=== PATIENT | female | born 1980 | race Caucasian/White ===

== ENCOUNTER → 2021-04-11 | Outpatient (CLI) | payer BC ==
[~2021-04-11] MED LIST: IBUP80TA PO; LANOOIN21 EX; LEVO125T3 PO; MAPA500T17 PO; PRENTAB9 PO
== END ==
LOC: M WHC 15:06
PROVIDERS: ATTEND Specialist
DX: Z12.4 Encounter for screening for malignant neoplasm of cervix (principal)
CPT/HCPCS: 87624; G0123

== ENCOUNTER → 2021-05-23 | Outpatient (CLI) | payer BC ==
--- NOTE | 2021-05-23 08:36 | REPMRS ---
Patient History The patient states she had a clinical breast exam in March 2021. No known family history of cancer. Took hormonal contraceptives for 12 years. Covid vaccines 11/2020 left arm. 12/2020 left arm. Pt denied . Patient states no breast complaints today. Patient has signed MRS History Sheet. Digital Woman Screen Mammo: May 23, 2021 - Exam #: [id number] Bilateral CC and MLO view(s) were taken. Technologist: RT Araceli FINDINGS: The breast tissue is heterogeneously dense. This may lower the sensitivity of mammography. Screening. Digital screening (2D) mammography was performed bilaterally. Additionally, breast tomosynthesis (3D) mammography was perfomed bilaterally in the CC and MLO projections. Today's examination is the initial screening examination. By history, the patient has no complaints of a palpable breast abnormality or other significant breast complaints. The Volpara volumetric breast density category is C, the breasts are heterogenously dense which may obscure small masses. The breasts are symmetric in size and shape. There are no masses. There is no internal architectural distortion. There are no suspicious microcalcific clusters. Skin thickening or nipple retraction is not present. IMPRESSION: BI-RADS Category 2- Benign Findings. There is no evidence of malignant alteration of the breasts. Followup examination recommended in one year. This mammogram was read with the assistance of [employer],an FDA approved computer aided detection system for mammography. The lifetime Tyrer-Cuzick score is 12.6% Negative x-ray reports should not delay surgical consultation if a dominant or clinically suspicious mass is present. Due to the density of the breasts, MRI/whole breast screening ultrasound is warranted. Not all breast cancers can be identified by mammography. Therefore, we recommend that you continue to perform regular breast self-examination and physical examination and then promptly contact your physician of any concerns or changes. Adenosis and dense breasts may obscure an underlying neoplasm. Assessment: BI-RADS/ACR category 2 mammogram. Benign Findings. Recommendation Routine screening mammogram of both breasts in 1 year. Electronically Signed By: Sander Mujica MD 05/23/21 0835
== END ==
LOC: M WHC 06:57
PROVIDERS: ATTEND Specialist
DX: Z12.31 Encounter for screening mammogram for malignant neoplasm of breast (principal)

== ENCOUNTER → 2022-02-11 | Outpatient (REF) | payer BC | LOC: M SFHCDERM 16:15 | PROVIDERS: ATTEND Physician Assistant | DX: D22.9 Melanocytic nevi, unspecified (principal) ==

== ENCOUNTER → 2022-05-26 | Outpatient (CLI) | payer BC | LOC: M WHC 06:52 | PROVIDERS: ATTEND Specialist | DX: R92.8 Other abnormal and inconclusive findings on diagnostic imaging of breast (principal); Z12.31 Encounter for screening mammogram for malignant neoplasm of breast ==

== ENCOUNTER → 2022-06-03 | Outpatient (CLI) | payer BC | LOC: M WHC 13:58 | PROVIDERS: ATTEND Specialist | DX: R92.2 Inconclusive mammogram (principal) | CPT/HCPCS: 76642; 77065; G0279 ==

== ENCOUNTER → 2022-12-07 | Outpatient (CLI) | payer BC | LOC: M WHC 13:48 | PROVIDERS: ATTEND Specialist | DX: N63.20 Unspecified lump in the left breast, unspecified quadrant (principal) | CPT/HCPCS: 77065; G0279 ==

== ENCOUNTER → 2023-06-22 | Outpatient (CLI) | payer BC | LOC: M WHC 06:57 | PROVIDERS: ATTEND Specialist | DX: Z12.31 Encounter for screening mammogram for malignant neoplasm of breast (principal) ==

== ENCOUNTER → 2023-08-23 | Outpatient (REF) | payer BC | LOC: M SFHCWAGY 08:20 | PROVIDERS: ATTEND Specialist | DX: Z12.4 Encounter for screening for malignant neoplasm of cervix (principal); R87.610 Atypical squamous cells of undetermined significance on cytologic smear of cervix (ASC-US) | CPT/HCPCS: 87624; G0123 ==

== ENCOUNTER → 2023-09-08 | Outpatient (CLI) | payer BC | LOC: M WHC 07:13 | PROVIDERS: ATTEND Specialist | DX: N92.6 Irregular menstruation, unspecified (principal) ==

== ENCOUNTER 2023-10-18 11:49 | Day surgery (SDC) | payer BC ==
[~2023-10-18] VITALS: Ht 162.6 cm; Wt 62.1 kg
[~2023-10-18 11:49] MED LIST changes: +D 1010004 PO; +LEVO112T2 PO
[2023-10-18 12:16] LABS: HEMATOCRIT 41.3 % (36.0-47.0); HEMOGLOBIN 13.4 g/dl (12.0-15.5); MEAN CORPUSCULAR HEMOGLOBIN 29.3 pg (27.0-33.0); MEAN CORPUSCULAR HGB CONC 32.4 g/dl (32.0-36.5); MEAN CORPUSCULAR VOLUME 90.2 fl (80.0-96.0); PLATELET COUNT, AUTOMATED 343 10^3/uL (150-450); RED BLOOD COUNT 4.58 10^6/uL (4.00-5.40)
[2023-10-18] MEDS ORDERED: LIDOCAINE 2% 100MG/5ML SDV (FOR ANES.) As Ordered ONE (12:17)
[2023-10-18] MEDS ORDERED: KETOROLAC 60MG 2ML VIAL As Ordered ONE (12:17)
[2023-10-18] MEDS ORDERED: propofoL 200 MG/20 ML VIAL As Ordered ONE (12:17)
[2023-10-18] MEDS ORDERED: ONDANSETRON 4MG 2ML VIAL As Ordered ONE (12:17)
[2023-10-18] MEDS ORDERED: MIDAZOLAM INJ 2MG/2ML VIAL As Ordered ONE (12:21)
[2023-10-18] MEDS ORDERED: fentaNYL 100 MCG/2 ML INJECTION As Ordered ONE (12:21)
[2023-10-18] MEDS ORDERED: LR 1,000 ML IV SCH ×2 (12:30→16:30)
[2023-10-18] MEDS ORDERED: ACETAMINOPHEN 1000MG 100ML IV BAG As Ordered ONE (16:00)
[2023-10-18] MEDS ORDERED: fentaNYL 100 MCG/2 ML INJECTION IV PRN (16:30)
[2023-10-18] MEDS ORDERED: ONDANSETRON 4MG 2ML VIAL IV PRN (16:30)
[2023-10-18 17:15] VITALS: BP 146/90; TEMP 97.2; O2SAT 99
[2023-10-18] MEDS ORDERED: ETOMIDATE INJ 20MG/10ML VIAL As Ordered ONE (17:17)
== END 2023-10-18 17:35 | disposition home or self-care (01) ==
LOC: M SDC 11:49
PROVIDERS: ATTEND Specialist
DX: N84.0 Polyp of corpus uteri (principal); N92.0 Excessive and frequent menstruation with regular cycle; N85.8 Other specified noninflammatory disorders of uterus; E03.9 Hypothyroidism, unspecified; Z79.890 Hormone replacement therapy
CPT/HCPCS: 36415; 58563; 81025; 85027; 88305; J0131; J1100; J1885; J2250; J2405; J3010

== ENCOUNTER → 2024-07-18 | Outpatient (CLI) | payer BC | LOC: M WHC 06:47 | PROVIDERS: ATTEND Specialist | DX: Z12.31 Encounter for screening mammogram for malignant neoplasm of breast (principal) ==

== ENCOUNTER → 2025-01-09 | Outpatient (REF) | payer BC ==
[2025-01-11 15:02] LABS: HPV APTIMA Not Detected (Not Detected)
== END ==
LOC: M SFHCWAGY 18:06
PROVIDERS: ATTEND Specialist
DX: Z12.4 Encounter for screening for malignant neoplasm of cervix (principal); R87.610 Atypical squamous cells of undetermined significance on cytologic smear of cervix (ASC-US)
CPT/HCPCS: 87624; G0123